=== PATIENT | female | born 1965 ===

== ENCOUNTER 2017-02-07 20:09 | Emergency (ER) | payer MEDICAID ==
[2017-02-07 20:29] VITALS: BP 107/42; PULSE 65; RESP 16; TEMP 96.9; O2SAT 98
--- NOTE | 2017-02-07 21:21 | ED PDOC ---
HPI: Headache Time Seen by Provider: 02/07/17 20:37 Chief Complaint (Nursing): Headache History Per: Patient History/Exam Limitations: language barrier (Estonian speaking ) Onset/Duration Of Symptoms: Hrs Current Symptoms Are (Timing): Gone Now Severity: Moderate Pain Scale Rating Of: 6 Quality: Pressure Associated Symptoms: Blurred Vision Additional Complaint(s): 51 YO Female with PMH of evacuated subdural hematoma in 2012, presents to [facility] ED for headache. Pt states that she came home from work around 4PM, when she experienced blurry vision and dizziness. She sat down and her symptoms resolved , but left pt with a headache. Headache is described as pressure type located bi -temporally and along the mid suture lines. Pt rated the headache as a 6/10 and promptly took two Tylenol and headache subsequently resolved. Denies eye pain, n /v/d/c, no gait instability. of note, pt is icelandic speaking, indemand was used for translation [id number]. PMH: denies SurgHx: evacuation of subdural hematoma 2012, cholecystectomy FH: mother liver cancer SH: denies smoking, ETOH, and illicit drug use Meds: Tylenol PRN Allergies: NKDA Past Medical History Vital Signs: Last Vital Signs Temp 96.9 F L 02/07/17 20:25 Pulse 65 02/07/17 20:25 Resp 16 02/07/17 20:25 BP 107/42 L 02/07/17 20:25 Pulse Ox 98 02/07/17 20:25 - Surgical History Surgical History: Cholecystectomy Other surgeries: subdural evacuation - Family History Family History: States: Other Other Family History: M: liver cancer - Living Arrangements Living Arrangements: With Family - Social History Current smoker - smoking cessation education provided: No Alcohol: None Drugs: Denies - Home Medications Home Medications: Ambulatory Orders Medication Instructions Recorded Naproxen 500 mg PO Q12 #20 tab 07/30/14 Naproxen [Naprosyn] 500 mg PO Q12H #20 tab 09/01/15 - Allergies Allergies/Adverse Reactions: Allergies Allergy/AdvReac Type Severity Reaction Status Date / Time No Known Allergies Allergy Verified 07/30/14 18:20 Review of Systems Constitutional: Negative for: Fever, Weakness Eyes: Negative for: Pain Cardiovascular: Negative for: Chest Pain, Palpitations Respiratory: Negative for: Cough, Shortness of Breath Gastrointestinal: Negative for: Nausea, Vomiting Musculoskeletal: Negative for: Neck Pain, Shoulder Pain Neurological: Positive for: Headache. Negative for: Weakness, Numbness, Confusion, Altered Mental Status Psych: Negative for: Anxiety, Depression Physical Exam - Physical Exam Appears: Positive for: Well, No Acute Distress Head Exam: Positive for: NORMAL INSPECTION (evacuation scar in head L side ) Skin: Positive for: Normal Color, Warm, Dry Eye Exam: Positive for: Normal appearance, EOMI Neck: Positive for: Normal, Painless ROM Cardiovascular/Chest: Positive for: Regular Rate, Rhythm. Negative for: Murmur Respiratory: Positive for: Normal Breath Sounds Gastrointestinal/Abdominal: Positive for: Normal Exam, Bowel Sounds, Soft. Negative for: Tenderness Extremity: Positive for: Normal ROM. Negative for: Pedal Edema Neurologic/Psych: Positive for: Alert, scientific affairs manager II-XII, Oriented, Gait (normal gait ) . Negative for: Motor/Sensory Deficits - ECG O2 Sat by Pulse Oximetry: 98 - Progress ED Course And Treament: 51 YO Female is seen in ED for headache. Pt states that her headache. Headache is likely Tension type and has resolved at this time. Pt is currently asymptomatic. Physical exam is wnl. Pt feels well to go home with follow up with PMD for further inquiry of headache. Disposition - Clinical Impression Clinical Impression: Headache - Disposition Referrals: Estefania Foster MD [Medical Doctor] - Disposition Time: 21:29 Condition: STABLE Instructions: Acute Headache (ED) Forms: [facility] (Gambian) Print Language: DANISH
== END 2017-02-07 21:35 | disposition home or self-care (01) ==
LOC: H.ER 20:09
DX: R51 Headache (principal); Z90.49 Acquired absence of other specified parts of digestive tract

== ENCOUNTER 2017-06-15 14:26 | Emergency (ER) | payer MEDICAID ==
[2017-06-15 15:10] VITALS: BP 111/59; PULSE 66; RESP 18; TEMP 98.2; O2SAT 99
--- NOTE | 2017-06-15 15:49 | ED PDOC ---
Syncope/Near Syncope/Dizziness Time Seen by Provider: 06/15/17 15:26 Chief Complaint (Nursing): Dizziness/Lightheaded Chief Complaint (Provider): Dizziness History Per: Patient History/Exam Limitations: no limitations Onset/Duration Of Symptoms: Hrs (today), Sudden Onset Current Symptoms Are (Timing): Still Present Seizure Or Post-ictal Symptoms: None Additional Complaint(s): Chary Hummel is a 52 year old female, with a past medical history of aneurysm, who presents to the emergency department complaining of dizziness onset today. Patient reports a sudden onset, non vertiginous while at work she was lifting something heavy. Patient states the dizziness also caused to have nausea and sweats, both of which have resolved. Patient is concerned because she has a history of aneurysm in 2012 for which she had a surgery. Patient also reports a recent nasal congestion and rhinorrhea over the last x3 weeks. She denies any headache, vomiting, focal weakness or blurry vision. No further medical complaints. PMD: Estefania Foster Past Medical History Reviewed: Historical Data, Nursing Documentation, Vital Signs Vital Signs: Last Vital Signs Temp 98.2 F 06/15/17 15:06 Pulse 66 06/15/17 15:06 Resp 18 06/15/17 15:06 BP 111/59 L 06/15/17 15:06 Pulse Ox 99 06/15/17 15:06 - Medical History PMH: Hypothyroidism Other PMH: Aneurysm - Surgical History Surgical History: Cholecystectomy - Family History Family History: States: No Known Family Hx - Social History Current smoker - smoking cessation education provided: No Alcohol: None Drugs: Denies - Home Medications Home Medications: Ambulatory Orders Medication Instructions Recorded Naproxen 500 mg PO Q12 #20 tab 07/30/14 Naproxen [Naprosyn] 500 mg PO Q12H #20 tab 09/01/15 Meclizine HCl 50 mg PO BID PRN #30 tablet 06/15/17 - Allergies Allergies/Adverse Reactions: Allergies Allergy/AdvReac Type Severity Reaction Status Date / Time No Known Allergies Allergy Verified 07/30/14 18:20 Review of Systems ROS Statement: Except As Marked, All Systems Reviewed And Found Negative Constitutional: Negative for: Sweats (resolved) ENT: Positive for: Nose Congestion (recent nasal congestion and rhinorrhea over the last x3 weeks. ) Gastrointestinal: Negative for: Nausea (resolved) Neurological: Positive for: Dizziness Physical Exam - Reviewed Nursing Documentation Reviewed: Yes Vital Signs Reviewed: Yes - Physical Exam Appears: Positive for: Well, No Acute Distress Head Exam: Positive for: ATRAUMATIC, NORMOCEPHALIC Skin: Positive for: Normal Color, Warm, Dry Eye Exam: Positive for: Normal appearance, EOMI, PERRL Neck: Positive for: Painless ROM Cardiovascular/Chest: Positive for: Regular Rate, Rhythm. Negative for: Murmur Respiratory: Positive for: Normal Breath Sounds. Negative for: Respiratory Distress Gastrointestinal/Abdominal: Positive for: Normal Exam, Soft. Negative for: Tenderness Back: Positive for: Normal Inspection. Negative for: L CVA Tenderness, R CVA Tenderness, Vertebral Tenderness Extremity: Positive for: Normal ROM (all extremities). Negative for: Deformity , Swelling Neurologic/Psych: Positive for: Alert, park activities coordinator II-XII (intact), Oriented (x3), Cerebellar Tests (normal), Other (Negative Rafi-Hallpike test). Negative for: Motor/Sensory Deficits - Laboratory Results Result Diagrams: 06/15/17 16:01 06/15/17 16:01 - ECG O2 Sat by Pulse Oximetry: 99 (RA) Pulse Ox Interpretation: Normal Medical Decision Making Medical Decision Making: Initial Impression: Dizziness. Differential includes but not limited dehydration , electrolyte abnormality, aneurysm. Less likely viral syndrome. Initial Plan: --Head w/o contrast [CT] --EKG --B-Type Natriuretic peptide --CMP --Magnesium --Phosphorus --TSH --Troponin I --Urine --Urine dipstick --CBC w/ differential --Glucose, blood, POC --Reevaluation Accession No. : [id number] Patient Name / ID : CARLA EPSTEIN / [id number] Exam Date : 06/15/2017 16:15:46 ( Approved ) Study Comment : Sex / Age : F / 52Y Creator : Solo Nash MD Dictator : Solo Nash MD Vending Machine Attendant : Export Coordinator : Solo Nash MD Approver2 : Report Date : 06/15/2017 17:03:29 My Comment : PROCEDURE: CT HEAD WITHOUT CONTRAST. HISTORY: dizziness h/o aneurysm COMPARISON: Prior unenhanced head CT 09/01/2015. TECHNIQUE: Axial computed tomography images were obtained through the head/brain without intravenous contrast. Radiation dose: Total exam DLP = 810.78 mGy-cm. This CT exam was performed using one or more of the following dose reduction techniques: Automated exposure control, adjustment of the mA and/or kV according to patient size, and/or use of iterative reconstruction technique. FINDINGS: HEMORRHAGE: No intracranial hemorrhage. BRAIN: Good corticomedullary differentiation is reiterated however there is mild diffuse cerebral atrophy appreciated once again. Prior right frontotemporal craniotomy is again identified with trace cystic encephalomalacia/ postop change medial right frontal lobe near the vertex. The remaining cortical and medullary density is normal including through the brainstem and cerebellum. Midline brain anatomy is unremarkable including the craniocervical junction. VENTRICLES: Unremarkable. No hydrocephalus. CALVARIUM: As above. PARANASAL SINUSES: Unremarkable as visualized. No significant inflammatory changes. MASTOID AIR CELLS: Unremarkable as visualized. No inflammatory changes. OTHER FINDINGS: None. IMPRESSION: Prior right frontotemporal craniotomy with trace postop change right frontal lobe anteromedially. Diffuse cerebral atrophy is appreciated mildly. No additional intracranial findings. Follow-up CT or MRI are available as clinically warranted. If intracranial aneurysm is clinically suspected further then follow-up CT without contrast advised, CT angiogram and/ or MR angiography. Labs unremarkable except for TSH 12, which is stable c/w previous. Pt has known hypothyroid. DW pt findings and plan of care. stable for dc with follow up pmd. Scribe Attestation: Documented by Carlos Krueger, acting as a scribe for Karlee Dinh MD Provider Scribe Attestation: All medical record entries made by the Scribe were at my direction and personally dictated by me. I have reviewed the chart and agree that the record accurately reflects my personal performance of the history, physical exam, medical decision making, and the department course for this patient. I have also personally directed, reviewed, and agree with the discharge instructions and disposition. Disposition - Clinical Impression Clinical Impression: Dizziness Counseled Patient/Family Regarding: Studies Performed, Diagnosis, Need For Followup, Rx Given - Disposition Referrals: Estefania Foster MD [Family Provider] - 06/16/17 (VISITA ANDRES DO[facility]) Disposition: Routine/Home Disposition Time: 17:00 Condition: GOOD Prescriptions: Meclizine HCl 50 mg PO BID PRN #30 tablet PRN Reason: Dizziness Instructions: Dizziness, Nonvertigo, (DC) Forms: [facility] ED School/Work Excuse Print Language: MALAY
[2017-06-15 16:08] LABS: BASO # 0.1 K/uL (0.0-0.2); BASO % 1.1 % (0.0-2.0); EOS # 0.1 K/uL (0.0-0.7); EOS % 2.1 % (0.0-4.0); HEMOGLOBIN 13.8 g/dL (12.0-16.0); LYMPH # 1.5 K/uL (1.0-4.3); LYMPH % 21.4 % (20.0-40.0); MEAN CELL VOLUME 92.3 fl (81.0-99.0); MEAN CORPUSCULAR HEMOGLOBIN 31.3 pg (27.0-31.0); MEAN CORPUSCULAR HGB CONC 33.9 g/dL (33.0-37.0); MEAN PLATELET VOLUME 8.2 fl (7.2-11.7); MONO # 0.4 K/uL (0.0-0.8); MONO % 5.4 % (0.0-10.0); NEUT # 4.8 K/uL (1.8-7.0); NRBC % 0.1 % (0.0-0.0); RBC 4.42 Mil/uL (3.80-5.20); RED CELL DISTRIBUTION WIDTH 14.4 % (11.5-14.5); WHITE BLOOD COUNT 6.8 K/uL (4.8-10.8)
[2017-06-15 16:33] LABS: B-TYPE NATRIURETIC PEPTIDE 65.3 pg/ml (0-900)
[2017-06-15 16:35] LABS: ALB/GLOB RATIO 1.2 (1.0-2.1); ALBUMIN 4.1 g/dL (3.5-5.0); ALT/SGPT 50 U/L (9-52); AST/SGOT 30 U/L (14-36); BLOOD UREA NITROGEN 12 mg/dl (7-17); CALCIUM 9.4 mg/dL (8.4-10.2); GFR AFRICAN-AMERICAN > 60; GFR NON-AFRICAN AMERICAN > 60
--- NOTE | 2017-06-15 17:05 | CT ---
PROCEDURE: CT HEAD WITHOUT CONTRAST. HISTORY: dizziness h/o aneurysm COMPARISON: Prior unenhanced head CT 09/01/2015. TECHNIQUE: Axial computed tomography images were obtained through the head/brain without intravenous contrast. Radiation dose: Total exam DLP = 810.78 mGy-cm. This CT exam was performed using one or more of the following dose reduction techniques: Automated exposure control, adjustment of the mA and/or kV according to patient size, and/or use of iterative reconstruction technique. FINDINGS: HEMORRHAGE: No intracranial hemorrhage. BRAIN: Good corticomedullary differentiation is reiterated however there is mild diffuse cerebral atrophy appreciated once again. Prior right frontotemporal craniotomy is again identified with trace cystic encephalomalacia/ postop change medial right frontal lobe near the vertex. The remaining cortical and medullary density is normal including through the brainstem and cerebellum. Midline brain anatomy is unremarkable including the craniocervical junction. VENTRICLES: Unremarkable. No hydrocephalus. CALVARIUM: As above. PARANASAL SINUSES: Unremarkable as visualized. No significant inflammatory changes. MASTOID AIR CELLS: Unremarkable as visualized. No inflammatory changes. OTHER FINDINGS: None. IMPRESSION: Prior right frontotemporal craniotomy with trace postop change right frontal lobe anteromedially. Diffuse cerebral atrophy is appreciated mildly. No additional intracranial findings. Follow-up CT or MRI are available as clinically warranted. If intracranial aneurysm is clinically suspected further then follow-up CT without contrast advised, CT angiogram and/ or MR angiography.
--- NOTE | 2017-06-16 10:45 | CARD ---
APPROVED REPORT EKG Measurement Heart [id number] [place] [id number] [id number] <Conclusion> Normal sinus rhythm Normal ECG
== END 2017-06-15 18:32 | disposition home or self-care (01) ==
LOC: H.ER 14:26
DX: R42 Dizziness and giddiness (principal); E03.9 Hypothyroidism, unspecified